=== PATIENT | female | born 1940 ===

== ENCOUNTER 2021-10-27 09:07 | Outpatient (CLI) | payer MEDICARE ==
--- NOTE | 2021-10-27 11:09 | Cat Scan Report ---
CTA CHEST WITH CONTRAST INDICATION / CLINICAL INFORMATION: I71.2 THORACIC AORTIC ANEURYSM OMNI 350 100 ML. TECHNIQUE: Axial CT images were obtained through the chest after injection of IV contrast. 3 plane [place] P and/or 3D reconstructions were produced. All CT scans at this location are performed using CT dose reduction for ALARA by means of automated exposure control. COMPARISON: None available. FINDINGS: PULMONARY ARTERIES: Not well opacified and poorly evaluated for pulmonary thromboembolism. THORACIC AORTA: Tortuosity of the descending thoracic aorta. No thoracic aortic aneurysm identified. Ascending thoracic aorta measures 3.8 cm in diameter. Descending thoracic aorta measures approximatel y 2.5 cm in diameter. HEART: No significant abnormality. CORONARY ARTERY CALCIFICATION: Multivessel MEDIASTINUM / ADRIANA: Marked patulous dilatation of the esophagus throughout its course throughout the posterior mediastinum. There is layering debris within the mid and distal esophagus above the level o f the bella. PLEURA: No pleural effusion. No pneumothorax. LUNGS: Bibasilar atelectasis versus parenchymal scarring. No acute airspace consolidation. ADDITIONAL FINDINGS: None. UPPER ABDOMEN: Postsurgical changes of the stomach. There is a 1.8 cm enhancing soft tissue mass gerard g the posterior interpolar region of the left kidney. SKELETAL STRUCTURES: No significant osseous abnormality. IMPRESSION: 1. No CT evidence of thoracic aortic aneurysm. 2. Marked dilatation of the esophagus with layering debris noted in the mid and distal esophagus. Fi ndings could reflect sequelae of prior surgery or reflect chronic, long-standing gastroesophageal ref lux. Clinical correlation is recommended and upper endoscopy could be performed as clinically indicat ed. 3. 1.8 cm enhancing soft tissue mass along the posterior interpolar region left kidney, most consist ent with renal cell carcinoma. Signer Name: Yair Hernández MD Signed: 10/27/2021 11:04 AM Workstation Name: [id number]
== END 2021-10-27 09:08 | disposition home or self-care (01) ==
LOC: CT 09:07
PROVIDERS: ATTEND Internal Medicine
DX: I71.2 Thoracic aortic aneurysm, without rupture (principal); R22.2 Localized swelling, mass and lump, trunk; I25.10 Atherosclerotic heart disease of native coronary artery without angina pectoris; I70.0 Atherosclerosis of aorta
CPT/HCPCS: 36415; 71275; 82565; 84520; Q9967